=== PATIENT | female | born 1985 | race Caucasian/White ===

== ENCOUNTER 2017-06-12 12:24 | Day surgery (SDC) | payer SELFPAY ==
[~2017-06-12] VITALS: Ht 167.6 cm; Wt 55.7 kg
[2017-06-12 13:13] VITALS: BP 104/50; PULSE 56; TEMP 97.7
[2017-06-12 16:35] VITALS: BP 96/53; PULSE 57; TEMP 97.7
[2017-06-12 16:50] VITALS: BP 99/62; PULSE 46
[2017-06-12 17:05] VITALS: BP 102/66; PULSE 44
[2017-06-12 17:20] VITALS: BP 106/71; PULSE 46
[2017-06-12 17:50] VITALS: BP 98/43; PULSE 49
[2017-06-12] MEDS ORDERED: NORCO 325 MG-51 TAB PO (17:57)
[2017-06-12] MEDS ORDERED: COLACE 100100 MG/CAP PO (17:58)
[2017-06-12] MEDS ORDERED: PYRIDIUM 100MG100 MG PO (17:58)
== END 2017-06-12 18:05 | disposition home or self-care (01) ==
LOC: EDBD 12:24 → SDCO 12:24
DX: N20.0 Calculus of kidney (principal); R31.21 Asymptomatic microscopic hematuria; F17.201 Nicotine dependence, unspecified, in remission
CPT/HCPCS: J0690; J1100; J2405; J2704; J3010; J7030